=== PATIENT | female | born 1965 | race Caucasian/White ===

== ENCOUNTER 2023-06-11 11:12 | Outpatient (CLI) | payer OTHER, SELFPAY ==
--- NOTE | ~2023-06-11 | MM_ITS ---
EXAMINATION: MM screening leonor BI w ori HISTORY: Screening mammogram TECHNIQUE: Craniocaudal and mediolateral oblique 3-D tomosynthesis images were obtained and synthetic 2-D images were generated. CAD analysis was submitted and interpreted. COMPARISON: 06/23/2016 bilateral screening mammogram BREAST PARENCHYMAL COMPOSITION: There are scattered areas of fibroglandular density. FINDINGS: There is no evidence of suspicious mass, calcification, or architectural distortion to sugg est malignancy in either breast. There has been no suspicious interval change. IMPRESSION: 1. No mammographic evidence of malignancy. 2. Recommend routine screening mammography in one year. BI-RADS Category 1: Negative Reviewed, dictated and finalized at location A.
== END 2023-06-11 11:13 ==
LOC: MICIMG 11:13
PROVIDERS: PCP Nurse Practitioner Obstetrics & Gynecology; Visit Provider Nurse Practitioner Obstetrics & Gynecology
DX: Z12.31 Encounter for screening mammogram for malignant neoplasm of breast (principal)
CPT/HCPCS: 77063; 77067

== ENCOUNTER 2024-12-02 00:46 | Day surgery (SDC) | payer OTHER, SELFPAY ==
[2024-11-24 13:08] VITALS: BMI 22.7
--- OUTSIDE RECORDS SUMMARY | 2024-12-02 00:49 | XMS_ITS | Clinical Summary ---
Author Organization [facility] Address [address] [place] [address] Care Team Providers Care Cigar Binder Name Role Phone Meet Joy MD Primary Care Provider [phone] [facility],non-owned Affiliates and Associated Physician Practices is amultiple site organization consisting of ambulatory clinics and hospital sitesin [place], [place], [place] and [place]. This disclosure is being madepursuant to the Care Everywhere program and may not contain all information available regarding this patient. Last updated 17.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 Gender Identity Not on file Sexual Orientation Not on file Plan of Treatment Health Maintenance Due Date Last Done Comments COLOGUARD (AGES 45-75) - COL ON CA SCREENING 1964 COLON MONITORING 1964 COLONOSCOPY - COLON CA SCREENING 1964 CT COLONOGRAPHY - COLON CA SCREENING 1964 Colorectal Cancer Screening 1964 FIT - COLON CA SCREENING 1964 FLEX SIG - COLON CA SCREENING 1964 LIPID TESTING 1965 MAMMOGRAM 1964 HIV SCREENING 08/06/1979 HEPATITIS C SCREENING 08/01/1982 DTAP/TDAP/TD VACCINES (1 - Tdap) 08/06/1983 PAP with HPV 1994 PNEUMOCOCCAL VACCINE 50+ (1 of 1 - PCV) 2014 ZOSTER VACCINE (1 of 2) 2014 DEPRESSION SCREENING 02/20/2024 COVID-19 VACCINE (1 - 2023-2 5 season) 2024 INFLUENZA VACCINE (#1) 2024 Respiratory Syncytial Virus (RSV) Vaccine Pt: or over 60 yrs (1 - 1-dose 75+ series) 08/06/2039 HEPATITIS B VACCINE Aged Out No longe r eligible based on patient's age to complete this topic HIB VACCINE Aged Out No longer eligi ble based on patient's age to complete this topic HPV VACCINE Aged Out No longer eligi ble based on patient's age to complete this topic MENINGOCOCCAL (Group B) VACC INE SHARED DECISION-MAKING Aged Out No longer eligibl e based on patient's age to complete this topic MENINGOCOCCAL GROUPS A/C/Y/W VACCINE Aged Out No longer eligible b ased on patient's age to complete this topic [place] [address] [place] [address] Care Teams Cigar Binder Relationship Specialty Start Date End Date Meet Joy MD [facility] [place] [address] PCP - General 03/07/18
--- OUTSIDE RECORDS SUMMARY | 2024-12-02 00:49 | XMS_ITS | Encounter Summary ---
Author Organization [facility] Address [address] [place] [address] Care Team Providers Care Fishing Vessel Mate Name Role Phone Meet Joy MD Primary Care Provider [phone] Encounter Details Date Type Department Care Team (Late st Contact Info) Description 03/11/2018 Lab Requisition [facility] Care DermPath Lab [address] [facility] [place] [address] Jen Roach MD [address] [facility] [address] [place] [address] Social History Tobacco Use Types Packs/Day Years Used Date Smoking Tobacco: Never Assessed Comments Unknown Sex and Gender Information Value Date Recorded Sex Assigned at Not on file 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 Gender Identity Not on file Sexual Orientation Not on file documented as of this encounter Plan of Treatment Not on file documented as of this encounter Procedures Procedure Name Priority Date/Time Associated Diagnosis Comments DERMATOPATH TECHNICAL REPORT Routine 03/07/2018 12:00 AM MANAGER PROGRAMMING documented in this encounter Results * DERMATOPATH TECHNICAL REPORT (03/07/2018 12:00 AM MANAGER PROGRAMMING) Case Report Dermatopathology Report Case: [id number] Authorizing Provider: Jen Roach MD Collected: 03/07/2018 12:00 AM Pathologist: Key Lindo MD Received: 03/11/2018 08:01 AM Specimen: Skin, left forearm 9 12:02 PM MANAGER PROGRAMMING DERMATOPATHOLOGY LABORATORY Clinical History Crusted papule, cyst, ISK, NMSC. 9 12:02 PM MANAGER PROGRAMMING DERMATOPATHOLOGY LABORATORY Gross Description Specimen A: Received is one formalin filled container labeled with the patient's name and designated left forearm. The specimen consists of a shave measuring [id number]. Jar 0. [facility] Dermatopathology Laboratory performed the technical component only. 9 12:02 PM [facility] DERMATOPATHOLOGY LABORATORY Embedded Images 12:02 PM [facility] DERMATOPATHOLOGY LABORATORY DISCLAIMER An external and internal positive and negative controls are appropriate for the histochemical, immunohistochemical and immunofluorescence stain(s) in this case (if any), except where stated explicitly. The performance characteristics of the stain(s) cited in this report were developed and its performance characteristic determined by the Dermatopathology Laboratory at [facility], directed by Dr. Dionna Alan. These tests need not be, and therefore are not, approved by the [place] Food and Drug Administration. The tests are used for clinical purposes. 9 12:02 PM [facility] DERMATOPATHOLOGY LABORATORY at [address] MANAGER PROGRAMMING Pathology/Cytolog y TISSUE SPECIMEN FROM SKIN / Unknown 03/07/2018 03/11/2018 8:01 AM MANAGER PROGRAMMING Jen Roach MD LAB - PATHOLOGY/CYTOLOGY ORD ERABLES Final Result DERMATOPATHOLOGY LABORATORY [facility] - Department of Dermatology [address] [facility] Lab [address] [phone] documented in this encounter Visit Diagnoses Not on filedocumented in this encounter Care Teams Fishing Vessel Mate Relationship Specialty Start Date End Date Meet Joy MD [facility] [place] [address] PCP - General 03/07/18 documented as of this encounter
--- OUTSIDE RECORDS SUMMARY | 2024-12-02 00:49 | XMS_ITS | Clinical Summary ---
Author Organization [facility] Address [address] [place] [address] Phone Care Team Providers Care Expense Clerk Name Role Phone Kira Galloway MD Primary Care Provider + Allergies Active Allergy Reactions Criticality Noted Date Comments Amoxicillin Rash,Itching Medium 10/28/2018 Medications lisinopril (PRINIVIL, ZESTRIL) 10 MG Tablet Take 10 mg by mouth every morning. Active folic acid (FOLVITE) 1 MG Tablet Take 1 mg by mouth every morning. Active buPROPion (WELLBUTRIN XL) 300 MG TABLET SR 24 HR XL tablet Take 300 mg by mouth every morning. Active escitalopram (LEXAPRO) 20 MG Tablet Take 20 mg by mouth every morning. Active Probiotic Product (PROBIOTIC DAILY PO) Take 1 Tab by mouth every morning. Active Cyanocobalamin (VITAMIN B 12 PO) by Intramuscular route every 30 days. Active Ixekizumab (TALTZ) 80 MG/ML Solution Auto-injector by Subcutaneous route every 30 days. Active omeprazole (PRILOSEC) 40 MG CAPSULE DELAYED RELEASE Take 1 Cap by mouth daily. 90 Cap 3 201 9 Active Additional Information Patient not taking.Reported on 02/17/2019 Active Problems No known active problems Family History Medical History Relation Name Comments No Known Problems Father No Known Problems Mother Celiac Disease Niece Relation Name Status Comments Father Mother Niece Social History Tobacco Use Types Packs/Day Years Used Date Smoking Tobacco: Some Days Cigarettes 0.5 12 Smokeless Tobacco: Never Tobacco Cessation:Ready to Q uit: No; Counseling Given: No Alcohol Use Standard Drinks/Week Comments Yes 0 (1 standard drink = 0.6 oz pur e alcohol) social PHQ-2 Answer Date Recorded PHQ-2 Score 0 11/07/2018 Comments No Sex and Gender Information Value Date Recorded Sex Assigned at Not on file Legal Sex Female 8:13 PM FISH TENDER Gender Identity Not on file Sexual Orientation Not on file 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 Not on file Not on file Not on f ile Last Filed Vital Signs Vital Sign Reading Time Taken Comments Blood Pressure 110/68 02/17/2019 1:03 PM FISH TENDER Pulse 71 02/17/2019 1:03 PM FISH TENDER Temperature 36 C (96.8 F) 11/07/2018 11:56 AM CDT Respiratory Rate 16 02/17/2019 1:03 PM FISH TENDER Oxygen Saturation 98% 02/17/2019 1:03 PM FISH TENDER Inhaled Oxygen Concentration - - Weight 89.8 kg (198 lb) 03/11/2019 1:00 PM FISH TENDER Height 170.2 cm (5' 7) 03/11/2019 1:00 PM FISH TENDER Body Mass Index 31.01 03/11/2019 1:00 PM FISH TENDER Plan of Treatment Health Maintenance Due Date Last Done Comments Hepatitis C Virus (HCV) Screening 1964 TdaP Immunization 1964 Pap Smear 1985 Cervical Cancer Screening (CCS) 1994 HPV/Cotest 1994 Cologuard 2009 Pneumococcal Immunization (5 0+ years) (1 of 1 - PCV) 2014 Zoster Immunization (1 of 2) 2014 Immunochemical Fecal Occult Blood 04/14/2017 017 Colonoscopy 10/31/2023 10/30/2018 Colorectal Cancer Screening 10/31/2023 Influenza Immunization (#1) 2024 SARS-COV-2 Immunization (1 - 2023- season) 2024 Respiratory Syncytial Virus (RSV) Immunization (Adult) (1 - 1-dose 75+ series) 08/06/2039 Hepatitis B Immunization Aged Out No longer eligible based on patient's age to complete this topic Human Papillomavirus (HPV) Immunization Aged Out No longer eligible b ased on patient's age to complete this topic Meningococcal Immunization (ACWY) Aged Out No longer eligible based on patient's age to complete this topic Rotavirus Immunization Aged Out No lo nger eligible based on patient's age to complete this topic Care Teams Expense Clerk Relationship Specialty Start Date End Date Kira Galloway MD [address] [place] [address] PCP - General Family Medicine 10/30/18
[2024-12-02 11:45] VITALS: BP 143/78; PULSE 84; RESP 18; TEMP 36.1; O2SAT 100
--- NOTE | 2024-12-02 11:54 | P.PNAN_ITS ---
Anes - Initial Pre Proc Eval Procedure: Operation Date: 12/02/24 13:00 Proposed Procedures p EGD & Diagnostic Colonoscopy - Isaias Murphy MD Date/Time: 12/02/24 11:54 Surgeon: Isaias Murphy MD Pre Op Diagnosis: Other specified symptoms and signs involving the d Patient Data Age: 59 Gender: F Height: 1.7 m Weight: 66.7 kg Last Vital Signs Temp 36.1 C L 12/02/24 11:45 Pulse 84 12/02/24 11:45 Resp 18 12/02/24 11:45 BP 143/78 H 12/02/24 11:45 Pulse Ox 100 12/02/24 11:45 O2 Del Method Room Air 12/02/24 11:45 Allergies Allergy/AdvReac Type Severity Reaction Status Date / Time amoxicillin Allergy Unknown Unknown Verified 12/02/24 11:44 Home Medications ?Medication ?Instructions ?Recorded ?Confirmed ?Type bupropion HCl 300 mg 24 hr tablet, 300 mg PO QAM #90 t abs 03/17/24 11/24/24 Rx extended release (Wellbutrin XL) escitalopram oxalate 20 mg tablet 20 mg PO DAILY #90 t abs 03/17/24 11/24/24 Rx (Lexapro) buspirone 7.5 mg tablet 7.5 mg PO BID #180 tabs 02/08/1311/24/24 Rx ondansetron 4 mg disintegrating 4 mg PO Q8H PRN nausea and 07/09/24 11/24/24 Rx tablet vomiting #30 tabs atomoxetine 80 mg capsule 80 mg PO QAM #90 caps 11/24/24 Rx (Strattera) omeprazole 20 mg capsule,delayed 20 mg PO DAILY 3 joshua hs #90 caps 10/16/24 11/24/24 Rx release folic acid 1 mg tablet 1 mg PO DAILY #90 tabs 11/0611/24/24 Rx fluticasone propionate 50 1 spray intranasal Q12H PRN nasal 11/24/24 11/24/24 History mcg/actuation nasal congestion spray,suspension (Flonase Allergy Relief) ixekizumab 80 mg/mL subcutaneous 80 mg subcut MONTHLY 11/24/24 11/24/24 History auto-injector ([employer] Autoinjector) mupirocin 2 % topical ointment 1 applic topical BID MA N sore 11/24/24 11/24/24 History polyethylene glycol 3350 17 17 g PO DAILY PRN constipa tion 11/24/24 11/24/24 History gram/dose oral powder (Miralax) Patient hx anesthesia problems: none Family hx anesthesia problems: none Results Review: All pre-operative results and documents have been reviewed as part of the pre- operative evaluation. [facility] Past Medical History Medical History (Updated 10/16/24 @ 14:30 by Lavern Thakkar APN-Vignesh) GERD (gastroesophageal reflux disease) Hiatal hernia Alternating constipation and diarrhea History of adenomatous polyp of colon Heartburn Nausea Decreased white blood cell count, unspecified Colon cancer screening Breast cancer screening Weight loss Rhinitis Tinnitus B12 deficiency Elevated LDL cholesterol level BMI 27.0-27.9,adult BMI 29.0-29.9,adult BMI 30.0-30.9,adult Hypersomnia Depression Snoring ADHD Celiac disease Psoriasis Encounter to establish care Fatigue Anemia Anxiety HTN (hypertension) Surgical History Surgical History History of thyroidectomy, subtotal half removed in 2014 Family History Family History Mother Cerebrovascular accident Hypertension Thyroid disease Father Family history of Parkinson's disease Anxiety Depression Daughter Asthma Depression Anxiety Other Diabetes mellitus Other Cancer Grandparent Hypertension Cerebrovascular accident Son Anxiety Depression Social History Social History Smoking packs per day: 1 Smoking cigarettes per day: 20.0 Smoking status: Former smoker Tobacco type: cigarettes Alcohol intake: current Alcohol use details: 2 per month Substance use: current Substance use type: marijuana Other substance usage details: nightly for sleep Lack of Transportation: No Lack of Food: Never True Current Housing: I Have Housing Concerned About Future Housing: No Difficulty Paying Gas/Electric Bills: No Difficulty Paying for Meds: No Currently Unemployed: No Education: Trade/Vocational Certificate Difficulty w/ Childcare or Family Care: No Living arrangements: alone Spiritual care concerns: No Anes - Eval Final PreProcedure Day of Procedure 12/02/24 11:54 Patient weight: normal Heart: regular rate and rhythm Lungs: clear to auscultation and normal air movement Airway: Mallampati scale class II Neurological: alert and oriented Last oral intake: >/= 8 hours ASA classification: III Emergent: no Anesthetic plan: proceed Anesthesia type and monitoring: general GIVS and standard monitoring Results Review: All pre-operative results and documents have been reviewed as part of the pre- operative evaluation. Informed Consent: The patient's anesthetic plan and its attendant risks and benefits were discussed with the patient/family/POA. Questions were solicited and answers provided to the satisfaction of the patient/family/POA.
[2024-12-02] MEDS: LACTATED RINGERS 1,000 ML 150 ML IV CONT (11:57)
--- NOTE | 2024-12-02 12:15 | PM.HPGS ---
History of Present Illness History of Present Illness Consent: Risks, benefits, and alternatives have been discussed and questions answered. Patient agrees to proceed with procedure. Chief complaint: Other specified symptoms and signs involving the d Narrative: Kristel Beckman is a 59 year old female here for egd and colonoscopy, last one 2018 with colon polyp. She has been told that probably has celiac but she is not following a diet, also h/o weight loss Review of Systems Review of Systems: All systems reviewed & are unremarkable except as noted in HPI and below [facility] Past Medical History Medical History (Updated 10/16/24 @ 14:30 by THALIA Bean) GERD (gastroesophageal reflux disease) Hiatal hernia Alternating constipation and diarrhea History of adenomatous polyp of colon Heartburn Nausea Decreased white blood cell count, unspecified Colon cancer screening Breast cancer screening Weight loss Rhinitis Tinnitus B12 deficiency Elevated LDL cholesterol level BMI 27.0-27.9,adult BMI 29.0-29.9,adult BMI 30.0-30.9,adult Hypersomnia Depression Snoring ADHD Celiac disease Psoriasis Encounter to establish care Fatigue Anemia Anxiety HTN (hypertension) Surgical History Surgical History History of thyroidectomy, subtotal half removed in 2014 Family History Family History Mother Cerebrovascular accident Hypertension Thyroid disease Father Family history of Parkinson's disease Anxiety Depression Daughter Asthma Depression Anxiety Other Diabetes mellitus Other Cancer Grandparent Hypertension Cerebrovascular accident Son Anxiety Depression Social History Social History Smoking packs per day: 1 Smoking cigarettes per day: 20.0 Smoking status: Former smoker Tobacco type: cigarettes Alcohol intake: current Alcohol use details: 2 per month Substance use: current Substance use type: marijuana Other substance usage details: nightly for sleep Lack of Transportation: No Lack of Food: Never True Current Housing: I Have Housing Concerned About Future Housing: No Difficulty Paying Gas/Electric Bills: No Difficulty Paying for Meds: No Currently Unemployed: No Education: Trade/Vocational Certificate Difficulty w/ Childcare or Family Care: No Living arrangements: alone Spiritual care concerns: No Meds Home Medications and Allergies Home Medications ?Medication ?Instructions ?Recorded ?Confirmed ?Type bupropion HCl 300 mg 24 hr tablet, 300 mg PO QAM #90 tabs 03/17/24 11/24/24 Rx extended release (Wellbutrin XL) escitalopram oxalate 20 mg tablet 20 mg PO DAILY #90 tabs 03/17/24 11/24/24 Rx (Lexapro) buspirone 7.5 mg tablet 7.5 mg PO BID #180 tabs 04/16/24 11/24/24 Rx ondansetron 4 mg disintegrating 4 mg PO Q8H PRN nausea and 07/09/24 11/24/24 Rx tablet vomiting #30 tabs atomoxetine 80 mg capsule 80 mg PO QAM #90 caps 08/18/24 11/24/24 Rx (Strattera) omeprazole 20 mg capsule,delayed 20 mg PO DAILY 3 months #90 caps 10/16/24 11/24/24 Rx release folic acid 1 mg tablet 1 mg PO DAILY #90 tabs 11/06/24 11/24/24 Rx fluticasone propionate 50 1 spray intranasal Q12H PRN nasal 11/24/24 11/24/24 History mcg/actuation nasal congestion spray,suspension (Flonase Allergy Relief) ixekizumab 80 mg/mL subcutaneous 80 mg subcut MONTHLY 11/24/24 11/24/24 History auto-injector ([employer] Autoinjector) mupirocin 2 % topical ointment 1 applic topical BID PRN sore 11/24/24 11/24/24 History polyethylene glycol 3350 17 17 g PO DAILY PRN constipation 11/24/24 11/24/24 History gram/dose oral powder (Miralax) Allergies Allergy/AdvReac Type Severity Reaction Status Date / Time amoxicillin Allergy Unknown Unknown Verified 12/02/24 11:44 Vital Signs Vital Signs - 24 hr 12/02/24 11:45 Temperature 97 F L Pulse Rate 84 Respiratory Rate 18 Blood Pressure 143/78 H Pulse Oximetry 100 Oxygen Delivery Room Air Exam Const: General: comfortable and no acute distress HENMT: Face/Nose/Sinus: Normal nares present Eyes: General: appearance normal, both eyes and all related structures Neck: Neck: no JVD Resp: Auscultation: clear to auscultation bilaterally Cardio: Rate: regular rate Rhythm: regular rhythm GI: Inspection: non-distended GI Palp: Yes Soft to palpation Skin: General skin exam: normal color Extrem: General: normal to inspection Psych: Mental Status: mental status grossly normal Assessment and Plan Assessment and plan (1) History of adenomatous polyp of colon: Code(s): Z86.0101 - Personal history of adenomatous and serrated colon polyps Status: Acute Assessment and Plan: colonoscopy (2) Celiac disease: Code(s): K90.0 - Celiac disease Status: Acute Assessment and Plan: egd with bx (3) Weight loss: Code(s): R63.4 - Abnormal weight loss Status: Acute
--- NOTE | 2024-12-02 12:24 | SUR.OPER ---
EGD [id number]. Colonoscopy start time 1228.
--- NOTE | 2024-12-02 12:39 | S_PTH ---
PATIENT: Kristel Beckman LOC: [facility] Ty#:[id number] AGE/SX: 59/F ROOM: RE12/02/[address]: Isaias Murphy MD : 1965 BED: DIS: 12/02/2024 SPEC #: [id number] RECD: 12/02/24 13:18 STATUS: NICOLE REJose #: [id number] SHIRA: 12/02/24 12:[address]: Isaias Murphy DEPT: [facility] Surgical RECD BY: Luis Armando Munoz ENTERED: 12/02/24 13:19 SP TYPE: Surgical OTHR DR: Denice Carbajal APRN Tissues: A - Colon Polypectomy B - Gastric Biopsy C - Small Bowel Bx D - Esophageal Biopsy Procedures: Hematoxylin and Eosin Stain Gross and Microscopic Level 4 H.Pylori
[2024-12-02 12:40] VITALS: BP 127/71; PULSE 78; RESP 17; O2SAT 100
[2024-12-02 12:50] VITALS: BP 134/66; PULSE 80; RESP 17; O2SAT 100
[2024-12-02 13:00] VITALS: BP 128/75; PULSE 75; RESP 22; O2SAT 100
== END 2024-12-02 13:21 | disposition home or self-care (01) ==
PROVIDERS: PCP Nurse Practitioner Family; Referring Provider Nurse Practitioner Family; Visit Provider Internal Medicine Gastroenterology
PROC: 0DJ08ZZ Inspection of Upper Intestinal Tract, Via Natural or Artificial Opening Endoscopic (ICD-10-PCS; CPT 45378; principal; 2024-12-02 13:00)
DX: K90.0 Celiac disease (principal); D12.3 Benign neoplasm of transverse colon; K21.00 Gastro-esophageal reflux disease with esophagitis, without bleeding; K29.50 Unspecified chronic gastritis without bleeding; K29.80 Duodenitis without bleeding; K64.8 Other hemorrhoids; I10 Essential (primary) hypertension; D64.9 Anemia, unspecified; E53.8 Deficiency of other specified B group vitamins; E78.00 Pure hypercholesterolemia, unspecified; F41.9 Anxiety disorder, unspecified; G47.10 Hypersomnia, unspecified; F32.A Depression, unspecified; F90.9 Attention-deficit hyperactivity disorder, unspecified type; L40.9 Psoriasis, unspecified; R53.83 Other fatigue; F12.90 Cannabis use, unspecified, uncomplicated; Z98.890 Other specified postprocedural states; Z87.891 Personal history of nicotine dependence; Z80.9 Family history of malignant neoplasm, unspecified
CPT/HCPCS: 43239; 45385; 88305; 88342; J2003; J2704; J7120